=== PATIENT | male | born 1965 | race Caucasian/White ===

== ENCOUNTER 2023-06-13 12:05 | Emergency (ER) | payer SELFPAY ==
[2023-06-13] VITALS (12 sets, daily range): BP systolic 182–211; BP diastolic 84–104; PULSE 77–89; RESP 15–27; TEMP 36.4; O2SAT 96–99; BMI 25.1
--- NOTE | 2023-06-13 12:13 | DI.CT.S_ITS ---
PROCEDURE: CT ANGIO HEAD AND NECK INDICATIONS: Possible CVA TECHNIQUE: After the administration of intravenous contrast, 1 mm thick sections acquired from the aortic arch through the [place]. 3-dimensional ocjcqrb-iihfsvwvj-cksuoqzzrm (MIP) and/or volume rendering reformats were acquired of the central intracranial vasculature and neck separately. For radiation dose reduction, the following was used: automated exposure control, adjustment of mA and/or kV according to patient size. COMPARISON: [facility], CT, CT HEAD/BRAIN WO/W CON, 06/13/2023, 14:55. FINDINGS: Image quality: Diagnostic. BRAIN: Please see separate CT brain report of 06/13/2023. HEAD CT ANGIOGRAPHY: Anterior circulation: Intracranial internal carotid arteries are normal in size and flow. The flow within the paired anterior cerebral arteries is normal and symmetric. The flow within the middle cerebral arteries is normal and symmetric. The anterior communicating artery is seen. No aneurysms are seen. Posterior circulation: Slight right vertebral artery dominance. Visualized portions of the vertebral arteries demonstrate normal caliber, and join to form a normal appearing basilar artery. Flow within the posterior cerebral arteries is normal and symmetric. No aneurysms are seen. NECK CT ANGIOGRAPHY: Carotid system: The great vessels demonstrate a conventional anatomy as they arise from the aortic arch. The origins of the common carotid arteries appear patent. The common carotid arteries demonstrate normal caliber and courses. The bifurcation regions are both widely patent. The internal carotid arteries demonstrate normal calibers and courses. Posterior circulation: The origins of the vertebral arteries both appear widely patent. The more superior extracranial portions of both vertebral arteries also demonstrate normal courses and calibers. They join to form a normal appearing basilar artery. Soft tissues: Visualized neck soft tissues demonstrate no suspicious abnormalities. Bones: No suspicious bony lesions. Visualized cervical spine appears normally aligned. IMPRESSION: No areas of hemodynamically significant stenosis, vascular occlusion or aneurysmal dilation within the anterior circulation. No areas of hemodynamically significant stenosis, vascular occlusion or aneurysmal dilation within the posterior circulation. No areas of hemodynamically significant stenosis, vascular occlusion or aneurysmal dilation within the neck vasculature. Any quantitative measurements of stenosis were performed using NASCET criteria. Dictated by: Briana Jovel M.D. on 06/13/2023 at 16:09 Approved by: Briana Jovel M.D. on 06/13/2023 at 16:11
--- NOTE | 2023-06-13 12:13 | DI.CT.S_ITS ---
PROCEDURE: CT HEAD/BRAIN WO/W CON INDICATIONS: Possible CVA TECHNIQUE: 4.5 mm thick angled axial sections acquired from the foramen magnum to the vertex before and after the administration of intravenous contrast, with coronal and sagittal reformats. For radiation dose reduction, the following was used: automated exposure control, adjustment of mA and/or kV according to patient size. COMPARISON: [facility], CT, CT ANGIO HEAD AND NECK, 06/13/2023, 14:55. FINDINGS: Image quality: Excellent. CSF Spaces: Basal cisterns are patent. No extra-axial fluid collections. Ventricles are normal in size and shape. Brain: No midline shift. No intracranial bleeds or masses. No abnormal intracranial enhancement. Cortez-white interface appears normal. Low-attenuation focus is present in the left frontal temporal lobe. Skull and face: Calvarium and visualized facial bones appear intact, without suspicious lesions. Sinuses: Visualized sinuses and mastoids are clear. IMPRESSION: Low-attenuation focus in the left frontal temporal lobe suspicious for subacute ischemia. No superimposed hemorrhage. Dictated by: Briana Jovel M.D. on 06/13/2023 at 16:11 Approved by: Briana Jovel M.D. on 06/13/2023 at 16:12
[2023-06-13] MEDS: SODIUM CHLORIDE 0.9% 1,000 ML 125 ML IV (13:00)
[2023-06-13 14:19] LABS: Add Manual Diff / Slide Review NO; Basophils Absolute Auto 0 /uL (0-100); Basophils Percent Auto 0.4 % (0-2); Eosinophils Absolute Auto 0 /uL (0-450); Eosinophils Percent Auto 0.2 % (2-4); Hematocrit 59.7 % (41-53); Hemoglobin 19.9 g/dL (13.5-17.5); Lymphocytes Absolute Auto 800 /uL (1100-4500); Lymphocytes Percent Auto 7.4 % (25-40); Mean Corpuscular HGB Conc 33.4 % (30-36); Mean Corpuscular Hemoglobin 29.2 PG (26-34); Mean Corpuscular Volume 87.4 fL (80-100); Monocytes Absolute Auto 800 /uL (0-900); Monocytes Percent Auto 6.8 % (3-14); Neutrophils Absolute Auto 9500 /uL (1500-7000); Neutrophils Percent Auto 85.2 % (50-75); Platelet Count 324 X10^3/uL (150-400); Prothrombin Time 11.5 SECONDS (9.4-12.5); Red Blood Cell Count 6.83 X10^6/uL (4.5-5.9); Red Cell Distribution Width 14.6 % (11.6-14.8); White Blood Cell Count 11.1 X10^3/uL (4.5-11.0)
[2023-06-13 14:21] LABS: PTT Partial Thromboplastin Tim 43 SECONDS (25.1-36.5)
[2023-06-13 14:22] LABS: Alanine Aminotransferase 36 IU/L (<50); Albumin 4.7 g/dL (3.5-5.0); Albumin Globulin Ratio 1.5 (1.0-2.8); Alkaline Phosphatase 59 U/L (38-126); Aspartate Aminotransferase 66 IU/L (17-59); BUN Creatinine Ratio 25.3 (6-22); Blood Urea Nitrogen 20 mg/dL (9-20); Calcium 9.3 mg/dL (8.4-10.2); Carbon Dioxide 28 mmol/L (22-32); Chloride 101 mmol/L (98-107); Creatine Kinase 566 U/L (55-170); Estimated Glomerular Filt Rate > 60 mL/min (>60); Globulin 3.1 g/dL (1.7-4.1); Glucose 257 mg/dL (80-110); HEMOLYSIS 31 (0-50); Lipase 25 U/L (23-300); Potassium 4.7 mmol/L (3.4-5.1); Sodium 137 mmol/L (137-145); Total Protein 7.8 g/dL (6.3-8.2)
[2023-06-13 14:34] LABS: Troponin I 0.013 ng/mL (0.01-0.034)
--- NOTE | 2023-06-13 15:22 | PC.NURSE ---
Pt remains aphasic. Having difficulty finding correct words and overall demeanor tearful. Pt otherwise a&ox4.
--- NOTE | 2023-06-13 15:33 | ED_ITS ---
HPI - Neuro Symptoms/Deficit General Chief Complaint: Neuro Symptoms/Deficit Stated Complaint: Stroke symptoms Time Seen by Provider: 06/13/23 12:12 Source: patient and EMS Mode of arrival: EMS History of Present Illness HPI Narrative: Patient is a 58-year-old male. He has an insulin-dependent diabetic. Who arrived by EMS for evaluation of a possible stroke. Patient has a difficulty expressing why he is here as he is having problems speaking. He is here a friend. Is reported by EMS that patient's last known normal was approximately 3 days ago. I was able to get from the patient that on Saturday morning he started have problems speaking. He denied any other associated symptoms to include headache, vision changes, chest pain, shortness of breath, abdominal pain, nausea vomiting. No extremity weakness. He has never had anything like this in the past. He states he manages his blood glucose by an insulin pump. He has never had a stroke in the past. He has not on anticoagulation. No fevers. No neck pain. He was able to express that he knows what he wants to stay but has difficulty saying it. On Anticoagulants: No Related Data Previous Rx's Medication Instructions Recorded aspirin 81 mg capsule 81 mg PO DAILY #30 caps 06/13/23 atorvastatin 40 mg tablet 40 mg PO DAILY #30 tabs 06/13/23 clopidogrel 75 mg tablet (Plavix) 75 mg PO DAILY #21 tabs 06/13/23 losartan 25 mg tablet 25 mg PO DAILY #30 tabs 06/13/23 Review of Systems Review of Systems ROS Unobtainable: All systems reviewed & are unremarkable except as noted in HPI and below Hematologic/Lymphatic On Anticoagulants: No Patient History Social History Smoking Status: Never smoker Smoking Status: Never smoker alcohol intake frequency: 0-2 drinks per day Substance Use Type: marijuana Exam Initial Vital Signs Initial Vital Signs: Vital Signs Temperature 97.6 F 06/13/23 12:15 Pulse Rate 84 06/13/23 12:15 Respiratory Rate 20 06/13/23 12:15 Blood Pressure 182/86 H 06/13/23 12:15 Pulse Oximetry 98 06/13/23 12:15 Oxygen Delivery Method Room Air 06/13/23 12:15 Const General: cooperative, comfortable and No ill appearing [facility] Head: normal to inspection and normocephalic Resp Effort & Inspection: normal respiratory effort Auscultation: clear to auscultation bilaterally Cardio Rate: regular rate Rhythm: regular rhythm GI Inspection: normal to inspection Skin General: no rashes or lesions noted Neuro General: patient alert, patient awake and moves all extremities Speech: abnormal speech Gait: normal gait Motor: muscle tone normal throughout Sensory Exam: no sensory deficits noted Extrem General: normal to inspection and capillary refill normal Psych Appearance: grossly normal and well kempt Scores NIH Stroke Scale Level of Conciousness: Alert, keenly responsive Ask month/age: Answers both questions correctly. Open/close eyes, close hand: Performs both tasks correctly Best gaze horizontal: Normal Visual bang: No visual loss Facial palsy: Normal symetrical movement Left arm drift: No drift for full 10 sec Right arm drift: No drift for full 10 sec Left leg drift: No drift for full 5 sec Right leg drift: Drifts down, not to bed Limb ataxia: Absent Sensory on face/arms/legs: Normal, no sensory loss Best language: No aphasia, normal Dysarthria: Severe, unintelligible Extinction or inattention: No abnormality Total NIH Stroke scale score: 3 Course Orders Ordered: ED Orders 06/13/23 12:13 CT angio head and neck Stat CT head/brain wo/w con Stat EKG-12 Lead Stat 06/13/23 14:00 Complete Blood Count AUTO DIFF Stat Comprehensive Metabolic Panel Stat Lipase Stat PTT Partial Thromboplastin Mike Stat Prothrombin Time INR Stat Troponin & CK Cardiac Panel Stat 06/13/23 15:45 Ictotest Urine Stat Urinalysis and Microscopic Stat Urine Drug Screen, Rapid Stat Discontinued Medications Sodium Chloride (Normal Saline 0.9%) 1,000 mls @ 125 mls/hr IV CONT JEAN Last Infusion: 06/13/23 17:18 Dose: Infused Documented By: Admin: 06/13/23 13:00 Dose: 125 mls/hr Documented By: NELLIE Vital Signs Vital signs: Vital Signs - 8 hr 06/13/23 12:15 06/13/23 12:41 06/13/23 12:53 Temperature 97.6 F Pulse Rate 84 89 Respiratory Rate 20 16 Blood Pressure 182/86 H 207/96 H Pulse Oximetry 98 98 Oxygen Delivery Method Room Air 06/13/23 12:53 06/13/23 13:00 06/13/23 13:00 Temperature Pulse Rate 81 82 Respiratory Rate 15 23 Blood Pressure 211/95 H Pulse Oximetry 97 97 Oxygen Delivery Method 06/13/23 13:30 06/13/23 14:00 06/13/23 14:27 Temperature Pulse Rate 79 79 89 Respiratory Rate 20 20 23 Blood Pressure Pulse Oximetry 98 98 Oxygen Delivery Method 06/13/23 14:27 06/13/23 14:30 06/13/23 14:30 Temperature Pulse Rate 85 Respiratory Rate 18 Blood Pressure 185/97 H 185/84 H Pulse Oximetry 99 Oxygen Delivery Method 06/13/23 15:09 06/13/23 15:17 06/13/23 15:17 Temperature Pulse Rate 80 78 Respiratory Rate 27 H Blood Pressure 205/104 H Pulse Oximetry 96 97 Oxygen Delivery Method 06/13/23 15:30 06/13/23 17:20 Temperature Pulse Rate 78 77 Respiratory Rate 25 H Blood Pressure 194/86 H Pulse Oximetry 98 97 Oxygen Delivery Method Room Air MDM - Neuro Symptoms/Deficit Lab Data Attestation: I reviewed the patient's lab results. 06/13/23 14:00 06/13/23 14:00 Labs: Lab Results 06/13/23 06/13/23 06/13/23 Range/Units 14:00 15:45 15:45 WBC 11.1 H (4.5-11.0) X10^3/uL RBC 6.83 H (4.5-5.9) X10^6/uL Hgb 19.9 H (13.5-17.5) g/dL Hct 59.7 H (41-53) % MCV 87.4 (80-100) fL MCH 29.2 (26-34) PG MCHC 33.4 (30-36) % RDW 14.6 (11.6-14.8) % Plt Count 324 (150-400) X10^3/uL Neut % (Auto) 85.2 H (50-75) % Lymph % (Auto) 7.4 L (25-40) % [place] % (Auto) 6.8 (3-14) % Eos % (Auto) 0.2 L (2-4) % Baso % (Auto) 0.4 (0-2) % Neut # (Auto) 9500 H (9200-1356) /uL Lymph # (Auto) 800 L (1129-7282) /uL [place] # (Auto) 800 (0-900) /uL Eos # (Auto) 0 (0-450) /uL Baso # (Auto) 0 (0-100) /uL PT 11.5 (9.4-12.5) SECONDS INR 1.0 (0.9-1.3) APTT 43 H (25.1-36.5) SECONDS Sodium 137 (137-145) mmol/L Potassium 4.7 (3.4-5.1) mmol/L Chloride 101 (98-107) mmol/L Carbon Dioxide 28 (22-32) mmol/L BUN 20 (9-20) mg/dL Creatinine 0.79 (0.66-1.25) mg/dL Estimated GFR > 60 (>60) mL/min BUN/Creatinine Ratio 25.3 H (6-22) Glucose 257 H (80-110) mg/dL Calcium 9.3 (8.4-10.2) mg/dL Total Bilirubin 2.0 H (0.2-1.3) mg/dL AST 66 H (17-59) IU/L ALT 36 (<50) IU/L Alkaline Phosphatase 59 (38-126) U/L Total Creatine Kinase 566 H (55-170) U/L Troponin I 0.013 (0.01-0.034) ng/mL Total Protein 7.8 (6.3-8.2) g/dL Albumin 4.7 (3.5-5.0) g/dL Globulin 3.1 (1.7-4.1) g/dL Albumin/Globulin Ratio 1.5 (1.0-2.8) Lipase 25 (23-300) U/L Urine Color Yellow Urine Appearance Clear Urine pH 6.0 Normal (4.5-8.0) Ur Specific [place] 1.020 (1.000-1.035) Urine Protein Negative (Negative) Urine Glucose (UA) Negative (Negative) g/dL Urine Ketones 2+ H (NEGATIVE) Urine Occult Blood Negative (Negative) Urine Nitrate Negative (Negative) Urine Bilirubin 1+ H (NEGATIVE) Ur Bilirubin Confirm Positive H (Negative) Urine Urobilinogen 0.2 (0.2) E.U./dL Ur Leukocyte Esterase Negative (NEGATIVE) Urine RBC 0-1/hpf (0-5/HPF) Urine WBC 0-1/hpf (0-5/HPF) Ur Squamous Epith Cells 0-1 /hpf (0-5/HPF) Urine Bacteria Occasional (0-1) (None) Hyaline Casts 0-1/lpf (None) Urine Mucus 1+ H (Negative) Ur Culture Indicated? Cult not indicated Vol Urine Centrifuged 10ml (spun) U Opiates 300ng/mL cut Negative (Negative) Ur Oxycodone Screen Negative (Negative) Urine Methadone Screen Negative (Negative) Ur Barbiturates Screen Negative (Negative) U Tricyclic Antidepress Negative (Negative) Ur Phencyclidine Scrn Negative (Negative) Ur Amphetamines Screen Negative (Negative) U Methamphetamines Scrn Negative (Negative) Ur MDMA Scrn (Ecstasy) Negative (Negative) U Benzodiazepines Scrn Negative (Negative) Urine Cocaine Screen Negative (Negative) U Marijuana (THC) Screen Positive H (Negative) Urine Specific [place] Normal (Normal) Ur Creatinine Normal (Normal) Point of Care Testing Glucose POC [address] scan - head: Radiologist's Impression: PROCEDURE: CT HEAD/BRAIN WO/W CON INDICATIONS: Possible CVA TECHNIQUE: 4.5 mm thick angled axial sections acquired from the foramen magnum to the vertex before and after the administration of intravenous contrast, with coronal and sagittal reformats. For radiation dose reduction, the following was used: automated exposure control, adjustment of mA and/or kV according to patient size. COMPARISON: [facility], CT, CT ANGIO HEAD AND NECK, 06/13/2023, 14:55. FINDINGS: Image quality: Excellent. CSF Spaces: Basal cisterns are patent. No extra-axial fluid collections. Ventricles are normal in size and shape. Brain: No midline shift. No intracranial bleeds or masses. No abnormal intracranial enhancement. [place]-white interface appears normal. Low-attenuation focus is present in the left frontal temporal lobe. Skull and face: Calvarium and visualized facial bones appear intact, without suspicious lesions. Sinuses: Visualized sinuses and mastoids are clear. IMPRESSION: Low-attenuation focus in the left frontal temporal lobe suspicious for subacute ischemia. No superimposed hemorrhage. CTA - brain/neck: Radiologist's Impression: ADDENDUMThis report includes an Addendum and supersedes previous reports for this exam. PROCEDURE: CT ANGIO HEAD AND NECK INDICATIONS: Possible CVA TECHNIQUE: After the administration of intravenous contrast, 1 mm thick sections acquired from the aortic arch through the [place]. 3-dimensional pdekzpy-qnbeochmd-ojeoczwqyb (MIP) and/or volume rendering reformats were acquired of the central intracranial vasculature and neck separately. For radiation dose reduction, the following was used: automated exposure control, adjustment of mA and/or kV according to patient size. COMPARISON: [facility], CT, CT HEAD/BRAIN WO/W CON, 06/13/2023, 14:55. FINDINGS: Image quality: Diagnostic. BRAIN: Please see separate CT brain report of 06/13/2023. HEAD CT ANGIOGRAPHY: Anterior circulation: Intracranial internal carotid arteries are normal in size and flow. The flow within the paired anterior cerebral arteries is normal and symmetric. The flow within the middle cerebral arteries is normal and symmetric. The anterior communicating artery is seen. No aneurysms are seen. Posterior circulation: Slight right vertebral artery dominance. Visualized portions of the vertebral arteries demonstrate normal caliber, and join to form a normal appearing basilar artery. Flow within the posterior cerebral arteries is normal and symmetric. No aneurysms are seen. NECK CT ANGIOGRAPHY: Carotid system: The great vessels demonstrate a conventional anatomy as they arise from the aortic arch. The origins of the common carotid arteries appear patent. The common carotid arteries demonstrate normal caliber and courses. The bifurcation regions are both widely patent. The internal carotid arteries demonstrate normal calibers and courses. Posterior circulation: The origins of the vertebral arteries both appear widely patent. The more superior extracranial portions of both vertebral arteries also demonstrate normal courses and calibers. They join to form a normal appearing basilar artery. Soft tissues: Visualized neck soft tissues demonstrate no suspicious abnormalities. Bones: No suspicious bony lesions. Visualized cervical spine appears normally aligned. IMPRESSION: No areas of hemodynamically significant stenosis, vascular occlusion or aneurysmal dilation within the anterior circulation. No areas of hemodynamically significant stenosis, vascular occlusion or aneurysmal dilation within the posterior circulation. No areas of hemodynamically significant stenosis, vascular occlusion or aneurysmal dilation within the neck vasculature. Any quantitative measurements of stenosis were performed using NASCET criteria. Dictated by: Briana Jovel M.D. on 06/13/2023 at 16:09 Approved by: Briana Jovel M.D. on 06/13/2023 at 16:11 ADDENDUM: Anterior circulation: There is a short segment area of diffuse narrowing within the distal left M1 segment of approximately 50%. No focal occlusion. No priors are available for comparison of chronicity. MDM Narrative Medical decision making narrative: Patient's last known normal was approximately [address] scan today is concerning for an acute CVA. This does correspond to his presenting symptoms. He was very difficult time expressing what he is trying to say however the words that he is able to say are clearly identifiable. He has no other associated neurologic symptoms except for some drifting of his right leg. I discussed with him the findings of the CT scan. I did tell him that he has had a stroke that we can see on the CT scan. Unfortunately he was not a candidate for tPA. Not a candidate for code IR. I did discuss the case with Dr. Marmolejo hospitalist on- call who will admit for further evaluation treatment. When I went back to discuss this with the patient he became very anxious about being admitted to the hospital. I spent an extensive amount of time talking with him about this. It was difficult because of his word-finding issues. I was able to find out that he was very concerned about being admitted to the hospital because of his insulin pump. He stated that he did not want anyone messing with his insulin pump. He stated that he did not have enough insulin to refill the pump. We discussed options to include talking with a friend to bring insulin to him. I reassured him that we can leave his insulin pump alone. He stated that he still did not want to be admitted to the hospital. In my opinion the patient does have capacity to make decisions. He has not altered. It was difficult to get him to express what was concerning to him but he did confirm that his issue was with his insulin pump. We discussed the risks and benefits of being admitted to the hospital versus discharge. We discussed the possibility of symptoms worsening or potentially progressing to something new. He did expressed understanding of this. He did agree to prescriptions for aspirin Plavix statin and losartan. These were sent to the pharmacy of his choice. He was informed that he can return to the emergency department at any point if he changes his mind or if he develops new symptoms. Discharge Plan Departure Patient Disposition: Left Against Medical Advice Clinical Impression: Cerebrovascular accident Instructions: DI for Stroke-Ischemic Activity Restrictions/Additional Instructions: Despite the recommendation of admission to the hospital you have opted to be discharged against medical advice. I recommend that you contact your primary care doctor for follow-up. You can return to the emergency department at any point if you change your mind or develop any new symptoms. Prescriptions: New losartan 25 mg tablet 25 mg PO DAILY Qty: 30 0RF aspirin 81 mg capsule 81 mg PO DAILY Qty: 30 0RF atorvastatin 40 mg tablet 40 mg PO DAILY Qty: 30 0RF clopidogrel [Plavix] 75 mg tablet 75 mg PO DAILY Qty: 21 0RF Referrals: Miscellaneous,Doctor, MD [Primary Care Provider] - Stand Alone Forms: Patient Portal/API, Against Medical Advice
[2023-06-13 16:02] LABS: Appearance Urine UA CLEAR; Bilirubin Urine UA 1+ (NEGATIVE); Color Urine UA YELLOW; Glucose Urine UA NEGATIVE (Negative); Ketones Urine UA 2+ (NEGATIVE); Leukocyte Esterase Urine UA NEGATIVE (NEGATIVE); Nitrite Urine UA NEGATIVE (Negative); Occult Blood Urine UA NEGATIVE (Negative); Protein Urine UA NEGATIVE (Negative); Urobilinogen Urine UA 0.2 E.U./dL (0.2)
[2023-06-13 16:09] LABS: Bacteria Urine Occasional (0-1); Ictotest Urine Positive (Negative); RBC Urine 0-1/HPF (0-5/HPF); Urine Volume 10mL (spun); WBC Urine 0-1/HPF (0-5/HPF)
[2023-06-13 16:10] LABS: Culture Indicated Urine Cult Not Indicated; Hyaline Casts Urine 0-1/LPF; Mucus Urine 1+ (Negative); Squamous Epithelial Cell Urine 0-1 /HPF (0-5/HPF); UR Morphine/Opiate cutoff 300 Negative (Negative); Ur Creatinine Normal (Normal); Ur Specific Gravity Normal (Normal); Urine Amphetamines Negative (Negative); Urine Barbiturates Negative (Negative); Urine Benzodiazepines Negative (Negative); Urine Cocaine Negative (Negative); Urine MDMA Negative (Negative); Urine Methadone Negative (Negative); Urine Methamphetamines Negative (Negative); Urine Oxycodone Negative (Negative); Urine Phencyclidine Negative (Negative); Urine Tetrahydrocannabinol Positive (Negative); Urine Tricyclic Antidepressant Negative (Negative); Urine pH Normal (Normal)
--- NOTE | 2023-06-13 16:31 | PM.CALLCOV.1 ---
Call Coverage Note Note Date of Patient Contact: 06/13/23 Narrative of Care Provided: 58 M presenting with word finding difficulties. CT non-con with probable CVA. Asked to evaluate for admission. Some concern for sepsis/encephalopathy given mild WBC elevation, AST 66 and Tbili of 2.0. Suspect dehydration but request RUQ US to rule out biliary pathology (if cholangitis possible would require transfer for ERCP). If negative RUQ ultrasound okay to admit to medicine.
== END 2023-06-13 17:17 | disposition left against medical advice (07) ==
PROVIDERS: Emergency Provider Emergency Medicine
DX: I63.9 Cerebral infarction, unspecified (principal); R29.703 NIHSS score 3
CPT/HCPCS: 36415; 70470; 70496; 70498; 80053; 80305; 81001; 82550; 82962; 83690; 84484; 85025; 85610; 85730; 96360; 96361; 99284; Q9967